=== PATIENT | female | born 1945 | race Caucasian/White ===

== ENCOUNTER → 2017-09-23 | Day surgery (SDC) | payer MEDICARE, OTHER ==
[~2017-09-23] MED LIST: CO Q10200 MG PO; COQ-10100 MG PO; DAILY VITAMIN1 EAC3 PO; FENTANYL CITRATE/PF 100MCG/2 ML INJ ONE; FISH OIL 1,0001 EAC2 PO; GARLIC100 MG PEG; GARLIC1500 MG PO; IRON PO; LAMISIL250 MG PO; LEVOTHYROXINE50 MCG PO; MELOXICAM7.5 MG PO; MIDAZOLAM HCL 2 MG/2 ML VIAL ONE; NIACIN500 M2 PO; OR PHACO EYE KIT ONE; PANTOPRAZOLE SO40 MG PO; PREOP PHACO EYE KIT ONE; PROPRANOLOL HCL10 MG PO; VENLAFAXINE HCL50 MG PO; VITAMIN B-12 PO; VITAMIN D3 PO; VITAMIN E PO
== END | disposition home or self-care (01) ==
LOC: OR 11:56
PROVIDERS: ATTEND Ophthalmology
DX: H25.12 Age-related nuclear cataract, left eye (principal); K58.9 Irritable bowel syndrome, unspecified; K21.9 Gastro-esophageal reflux disease without esophagitis
CPT/HCPCS: 66984; J2250

== ENCOUNTER → 2017-10-21 | Day surgery (SDC) | payer MEDICARE, OTHER | END | disposition home or self-care (01) | LOC: OR 10:06 | PROVIDERS: ATTEND Ophthalmology | DX: H25.11 Age-related nuclear cataract, right eye (principal); I10 Essential (primary) hypertension; R53.1 Weakness; E03.9 Hypothyroidism, unspecified; N20.0 Calculus of kidney; F41.9 Anxiety disorder, unspecified | CPT/HCPCS: 66984; J2250; V2632 ==

== ENCOUNTER → 2018-06-03 | Outpatient (CLI) | payer MEDICARE ==
[~2018-06-03] MED LIST changes: -FENTANYL CITRATE/PF 100MCG/2 ML INJ ONE; -MIDAZOLAM HCL 2 MG/2 ML VIAL ONE; -OR PHACO EYE KIT ONE; -PREOP PHACO EYE KIT ONE
--- NOTE | 2018-06-03 10:56 | Diagnostic Imaging Report ---
EXAM: Right upper quadrant abdominal ultrasound INDICATION: Abdominal pain. COMPARISON: [facility] 02/02/2016 TECHNIQUE: Transverse and longitudinal images of the right upper quadrant abdomen were obtained FINDINGS: Liver: Size: 10.6 cm in the right midclavicular line, normal Appearance: Increased echogenicity, smooth contour Mass: No focal masses Gallbladder: No distention, pericholecystic fluid, wall thickening, stone, or reported sonographic Olivier's sign. Gallbladder wall measures 0.1 cm. Bile Ducts: Intrahepatic Ducts: No dilatation Extrahepatic Ducts: Common bile duct measures 0.2 cm, no dilatation Pancreas: Visualized portions of the pancreatic head, neck and proximal body are normal. Kidney: The right kidney measures 10.1 cm without evidence of hydronephrosis or stone. Vessels: Aorta: Visualized portions are normal Inferior Vena Cava: Visualized portions are normal Main Portal Vein: 0.5 cm, normal size with hepatopetal flow. Free Fluid: No evidence of ascites. IMPRESSION: Hepatic steatosis. No sonographic evidence of cholecystitis. Signed by: Dr. Nelson Phipps MD on 06/03/2018 10:53 AM
== END ==
LOC: US 08:31
PROVIDERS: ATTEND Family Medicine
DX: R10.84 Generalized abdominal pain (principal)
CPT/HCPCS: 76705

== ENCOUNTER → 2019-06-09 | Outpatient (CLI) | payer MEDICARE ==
--- NOTE | 2019-06-09 13:21 | Diagnostic Imaging Report ---
MRI of the left hip without contrast. History: Hip pain. Decreased range of motion. Labral tear. Pain not responding to conservative management Technique: Multiplanar multisequence MRI of the hip without contrast. Comparison: None Findings: Marked bone marrow edema in the anterior left acetabulum with adjacent soft tissue edema best seen on series 7 image 9 coronal, series 6 image 17 axial and series 8 image 33 sagittal. This is most likely due to a minimally displaced fracture. Additionally, there is edema in the adjacent left hip adductor musculature consistent with a muscle strain/partial tear best seen on coronal series 7 image 15 through 19. Scattered degenerative changes are seen about the remaining visualized osseous structures. No osseous erosion. 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 Mild underlying bone marrow edema. Degeneration and fraying of the labrum. Physiologic amount of fluid in the left hip joint. The remainder the visualized ligaments and tendons about the left hip are intact. No evidence to suggest greater trochanteric bursitis. The visualized neurovascular bundles are intact. The remainder the visualized muscles are unremarkable. Impression: Findings consistent with a minimally displaced fracture involving the anterior left acetabulum. Additionally, there is edema in the adjacent left hip adductor musculature consistent with a muscle strain/partial tear. Mild degenerative arthrosis in the left hip joint with degeneration and fraying of the labrum. Signed by: Dr. Lee Garrido M.D. on 06/09/2019 1:18 PM
== END ==
LOC: MRI 11:47
PROVIDERS: ATTEND Family Medicine
DX: S73.192A Other sprain of left hip, initial encounter (principal)

== ENCOUNTER 2019-09-03 12:59 | Outpatient (RCR) | payer MEDICARE | END 2019-09-05 | LOC: PT 12:59 | PROVIDERS: ATTEND Specialist | DX: S32.592A Other specified fracture of left pubis, initial encounter for closed fracture (principal); S32.492A Other specified fracture of left acetabulum, initial encounter for closed fracture; Z91.81 History of falling; R29.6 Repeated falls; M62.81 Muscle weakness (generalized) | CPT/HCPCS: 97139 ==

== ENCOUNTER 2019-09-24 12:51 | Outpatient (RCR) | payer MEDICARE | END 2019-10-05 | LOC: PT 12:51 | PROVIDERS: ATTEND Specialist | DX: S32.592A Other specified fracture of left pubis, initial encounter for closed fracture (principal); M62.81 Muscle weakness (generalized); R29.6 Repeated falls; Z91.81 History of falling | CPT/HCPCS: 97139 ==

== ENCOUNTER → 2019-09-29 | Outpatient (CLI) | payer MEDICARE ==
--- NOTE | 2019-09-29 14:20 | Diagnostic Imaging Report ---
Exam: Bone mineral density study. History: Osteoporosis Comparison: None Discussion: Evaluation of the left hip and lumbar spine was performed. The study is technically adequate. The patient's fracture risk is compared to an age-matched control. The patient denies prior surgery/fracture of the spine, hips or forearm. Left hip femoral neck bone mineral density: 0.553 g/cm2, T-score is -2.7, Z-score is -0.7. Left hip total bone mineral density: 0.641 g/cm2, T-score is -2.5, Z-score is -0.8. Lumbar spine total bone mineral density: 0.885 gm/cm2, T-score is -1.5, Z-score is 0.8. Impression: 1. Bone mineralization by WHO Classification of the left hip is osteoporosis, the fracture risk is increased. 3. Bone mineralization by WHO Classification of the lumbar spine is osteopenia, the fracture risk is moderate. <T score: NL = -1 or higher Osteopenia = -1 to -2.5 Osteoporosis = -2.5 or lower Z score: < - 1.5 concerning for path> Recommendations: Medical evaluation for secondary causes of low bone mineral density may be appropriate. Correlate clinically for the necessity and timing of the next bone mineral density study. Signed by: Dr. Abdi Gibbs MD on 09/29/2019 2:17 PM
== END ==
LOC: DX 11:53
PROVIDERS: ATTEND Specialist
DX: Z12.31 Encounter for screening mammogram for malignant neoplasm of breast (principal); M81.8 Other osteoporosis without current pathological fracture
CPT/HCPCS: 77067; 77080

== ENCOUNTER → 2020-02-09 | Outpatient (CLI) | payer MEDICARE ==
--- NOTE | 2020-02-09 16:00 | Diagnostic Imaging Report ---
EXAM: US ABDOMEN COMPLETE DATE: 02/09/2020 2:51 PM INDICATION: Elevated liver enzymes COMPARISON: CT abdomen and pelvis of 09/06/2008, abdominal ultrasound 06/03/2018 TECHNIQUE: Transverse and longitudinal grider scale and color doppler sonographic images of the upper abdomen were obtained. FINDINGS: LIVER 13.1 cm in the right midclavicular line. Increased echogenicity of the liver with normal contour, no masses. SPLEEN 7.2 cm in maximum diameter. Normal echogenicity, no masses. GALLBLADDER No gallbladder wall thickening, distension, stone, or pericholecystic fluid. Negative reported sonographic Olivier's sign. The gallbladder wall measures 2mm BILE DUCTS No intra nor extra-hepatic biliary dilation. Common bile duct measures 2mm PANCREAS: Visualized portions are normal. RIGHT KIDNEY: 8.8 cm Echogenicity: Normal Collecting System: No hydronephrosis Stones: None Cyst/Mass: None LEFT KIDNEY: 8.5 cm Echogenicity: Normal Collecting System: No hydronephrosis Stones: None Cyst/Mass: None VESSELS: Aorta: Visualized portions are within normal size limits Inferior Vena Cava: Visualized portions are normal Main Portal Vein: 0.6 cm, normal size with hepatopetal flow. FREE FLUID: None IMPRESSION: Hepatic steatosis. No focal mass or biliary ductal dilation. No cholelithiasis or sonographic evidence of cholecystitis. Signed by: Mohini Clement MD on 02/09/2020 3:57 PM
== END ==
LOC: US 14:32
PROVIDERS: ATTEND Family Medicine
DX: R79.89 Other specified abnormal findings of blood chemistry (principal)
CPT/HCPCS: 76700

== ENCOUNTER → 2020-07-26 | Outpatient (CLI) | payer MEDICARE | LOC: MRI 08:53 | PROVIDERS: ATTEND Psychiatry & Neurology Clinical Neurophysiology | DX: M47.812 Spondylosis without myelopathy or radiculopathy, cervical region (principal); G30.1 Alzheimer's disease with late onset | CPT/HCPCS: 70551; 72141 ==

== ENCOUNTER 2020-08-21 12:27 | Inpatient (IN) | payer MEDICARE ==
[~2020-08-21] VITALS: Ht 152.4 cm; Wt 49.0 kg
[2020-08-21] MEDS ORDERED: ONDANSETRON HCL INJ 2MG/ML 2ML 2 MG/ML VIAL IV STA (14:04)
[2020-08-21 14:09] LABS: BASOPHILS # (AUTO) 0.1 (0.0-0.1); BASOPHILS % 0.8 % (0.0-1.0); EOSINOPHILS # (AUTO) 0.1 (0.0-0.4); EOSINOPHILS % 1.2 % (0.0-6.0); HEMATOCRIT 36.6 % (34.2-44.1); HEMOGLOBIN 12.4 g/dL (12.0-16.0); LYMPHOCYTES # (AUTO) 2.4 (1.0-3.2); LYMPHOCYTES % 39.6 % (18.0-39.1); MEAN CORPUSCULAR HEMOGLOBIN 36.5 pg (28-32); MEAN CORPUSCULAR HGB CONC 33.9 g/dL (31-35); MEAN CORPUSCULAR VOLUME 107.6 fL (81-99); MONOCYTES % 15.9 % (4.4-11.3); NEUTROPHILS # (AUTO) 2.5 (2.1-6.9); PLATELET COUNT 349 x10e3/uL (140-360); RED CELL DISTRIBUTION WIDTH 14.3 % (11.7-14.4)
[2020-08-21] MEDS ORDERED: SODIUM CHLORIDE 0.9% 1000ML 1,000 ML IV ONE ×2 (14:15→15:15)
[2020-08-21 14:23] LABS: CLARITY,URINE SL CLOUDY (CLEAR); COLOR,URINE YELLOW (YELLOW); KETONES,URINE 1+ (NEGATIVE); LEUKOCYTE ESTERASE ,URINE TRACE (NEGATIVE); NITRITE,URINE NEGATIVE (NEGATIVE); PROTEIN,URINE DIPSTICK NEGATIVE (NEGATIVE); URINE UROBILINOGEN >=8 mg/dL (0.2 - 1)
[2020-08-21] MEDS ORDERED: PIPERACILLIN/TAZOBACTAM 3.375 GM in SODIUM CHLORIDE 0.9% 50ML 50 ML IV ONE (14:30)
[2020-08-21] MEDS ORDERED: SODIUM CHLORIDE 0.9% 50ML 50 ML ONE (14:31)
[2020-08-21] MEDS ORDERED: PIPERACILLIN/TAZOBACTAM 3.375 GM VIAL ONE (14:31)
[2020-08-21 14:38] LABS: ALANINE AMINOTRANSFERASE 24 IU/L (0-55); ALBUMIN 2.5 g/dL (3.5-5.0); ALBUMIN/GLOBULIN RATIO 0.6 (0.8-2.0); ALKALINE PHOSPHATASE 134 IU/L (40-150); ANION GAP 18.1 mmol/L (8-16); BLOOD UREA NITROGEN 11 mg/dL (7-26); BUN/CREATININE RATIO 17 (6-25); CALCIUM 8.7 mg/dL (8.4-10.2); CARBON DIOXIDE 21 mmol/L (22-29); CHLORIDE 101 mmol/L (98-107); CREATINE KINASE 19 IU/L (29-168); CREATININE, SERUM 0.66 mg/dL (0.57-1.11); EST GLOMERULAR FILTRATION RATE > 60 ML/MIN (60-); GLUCOSE 100 mg/dL (74-118); POTASSIUM 4.1 mmol/L (3.5-5.1); SODIUM 136 mmol/L (136-145)
[2020-08-21 14:40] LABS: BACTERIA,URINE RARE /HPF; EPITHELIAL CELLS,URINE FEW /LPF; MUCUS,URINE FEW (RARE); RBC,URINE 0-5 /HPF (0-5); WBC,URINE (MAN) 0-5 /HPF (0-5)
[2020-08-21 15:06] LABS: MAGNESIUM 1.5 MG/DL (1.3-2.1)
[2020-08-21] MEDS ORDERED: ONDANSETRON HCL INJ 2MG/ML 2ML 2 MG/ML VIAL IV PRN (18:15)
[2020-08-21] MEDS ORDERED: MORPHINE SULFATE INJ 2 MG/ML SYR IV STA (18:24)
[2020-08-21] MEDS: SODIUM CHLORIDE 0.9% 1000ML 1,000 ML IV SCH (18:30)
[2020-08-21] MEDS: AZITHROMYCIN 500MG/NS 250 ML 250 ML IV SCH (18:39)
[2020-08-21] MEDS: PIPERACILLIN/TAZOBACTAM 3.375 GM in SODIUM CHLORIDE 0.9% 50ML 50 ML IV SCH (20:47)
[2020-08-21 22:02] VITALS: BP 128/82
[2020-08-22] VITALS (7 sets, daily range): BP systolic 89–124; BP diastolic 65–78
[2020-08-22 00:02] LABS: CREATINE KINASE MB 3.2 ng/mL (0-5.0)
[2020-08-22] MEDS: HYDROMORPHONE 1MG/1ML INJ IV PRN (00:22)
[2020-08-22] MEDS: PIPERACILLIN/TAZOBACTAM 3.375 GM in SODIUM CHLORIDE 0.9% 50ML 50 ML IV SCH ×4 (04:14→21:00)
[2020-08-22] MEDS: SODIUM CHLORIDE 0.9% 1000ML 1,000 ML IV SCH (04:17)
[2020-08-22 05:15] LABS: BASOPHILS % 0.5 % (0.0-1.0); EOSINOPHILS % 0.5 % (0.0-6.0); HEMATOCRIT 29.6 % (34.2-44.1); HEMOGLOBIN 9.8 g/dL (12.0-16.0); LYMPHOCYTES # (AUTO) 1.6 (1.0-3.2); LYMPHOCYTES % 26.1 % (18.0-39.1); MEAN CORPUSCULAR HEMOGLOBIN 35.8 pg (28-32); MEAN CORPUSCULAR HGB CONC 33.1 g/dL (31-35); MONOCYTES # (AUTO) 0.8 (0.2-0.8); NEUTROPHILS # (AUTO) 3.7 (2.1-6.9); NEUTROPHILS % 59.4 % (38.7-80.0); PLATELET COUNT 363 x10e3/uL (140-360); RED BLOOD COUNT 2.74 x10e6/uL (3.6-5.1); RED CELL DISTRIBUTION WIDTH 14.4 % (11.7-14.4)
[2020-08-22 06:13] LABS: ALANINE AMINOTRANSFERASE 19 IU/L (0-55); ALBUMIN 1.9 g/dL (3.5-5.0); ALBUMIN/GLOBULIN RATIO 0.6 (0.8-2.0); ALKALINE PHOSPHATASE 97 IU/L (40-150); ANION GAP 15.8 mmol/L (8-16); BLOOD UREA NITROGEN 11 mg/dL (7-26); BUN/CREATININE RATIO 17 (6-25); CALCIUM 7.5 mg/dL (8.4-10.2); CARBON DIOXIDE 18 mmol/L (22-29); CHLORIDE 110 mmol/L (98-107); CREATININE, SERUM 0.64 mg/dL (0.57-1.11); EST GLOMERULAR FILTRATION RATE > 60 ML/MIN (60-); GLUCOSE 79 mg/dL (74-118); POTASSIUM 3.8 mmol/L (3.5-5.1); SODIUM 140 mmol/L (136-145)
[2020-08-22 06:29] LABS: CREATINE KINASE MB 1.5 ng/mL (0-5.0)
[2020-08-22] MEDS: ACETAMINOPHEN 325 MG SUPP PR PRN ×2 (10:21→16:21)
[2020-08-22] MEDS ORDERED: LORAZEPAM INJ 2 MG/ML VIAL IV PRN (11:15)
[2020-08-22] MEDS ORDERED: ARICEPT5 MG PO (11:19)
[2020-08-22] MEDS ORDERED: CITRATE OF MAGNESIA 300ML BOTTLE PO ONE (11:45)
[2020-08-22] MEDS ORDERED: MINERAL OIL 132 ML BTL PR ONE (12:00)
[2020-08-22] MEDS: PROPRANOLOL HCL 10 MG TAB PO SCH ×3 (13:00→21:00)
[2020-08-22 15:02] LABS: CREATINE KINASE MB 1.2 ng/mL (0-5.0)
[2020-08-22] MEDS ORDERED: PANTOPRAZOLE 40 MG 10ML VIAL IV SCH (17:00)
[2020-08-22] MEDS: AZITHROMYCIN 500MG/NS 250 ML 250 ML IV SCH (17:16)
[2020-08-22] MEDS ORDERED: VENLAFAXINE HCL 50 MG PO SCH (21:00)
[2020-08-22] MEDS: DONEPEZIL HCL 5 MG TAB PO SCH (21:00)
[2020-08-23] VITALS (8 sets, daily range): BP systolic 97–118; BP diastolic 66–79
[2020-08-23] MEDS ORDERED: PANTOPRAZOLE 40 MG 10ML VIAL IV STA (02:01)
[2020-08-23] MEDS ORDERED: METOCLOPRAMIDE HCL 10 MG/2ML VIAL IV STA (02:04)
[2020-08-23] MEDS: PANTOPRAZOL 40MG/SOD CHL 0.9% 50 ML IV SCH ×5 (02:15→20:48)
[2020-08-23] MEDS ORDERED: PANTOPRAZOL 40MG/SOD CHL 0.9% 250 ML IV SCH (02:15)
[2020-08-23] MEDS ORDERED: SODIUM CHLORIDE 0.9% 250ML 250 ML ONE (02:24)
[2020-08-23] MEDS: PIPERACILLIN/TAZOBACTAM 3.375 GM in SODIUM CHLORIDE 0.9% 50ML 50 ML IV SCH ×4 (02:27→20:47)
[2020-08-23] MEDS ORDERED: BISACODYL 5 MG TAB EC PO ONE ×2 (03:00→03:30)
[2020-08-23] MEDS: METOCLOPRAMIDE HCL 10 MG/2ML VIAL IV SCH ×4 (05:56→22:55)
[2020-08-23] MEDS: LEVOTHYROXINE SODIUM 50 MCG TAB PO SCH (05:56)
[2020-08-23 06:21] LABS: IRON 69 ug/dL (50-170); TRANSFERRIN < 70 mg/dL (180-382)
[2020-08-23] MEDS ORDERED: PANTOPRAZOLE 40 MG 10ML VIAL IV SCH (09:00)
[2020-08-23] MEDS: PROPRANOLOL HCL 10 MG TAB PO SCH ×4 (11:45→20:47)
[2020-08-23] MEDS: AZITHROMYCIN 500MG/NS 250 ML 250 ML IV SCH (20:00)
[2020-08-23] MEDS: DONEPEZIL HCL 5 MG TAB PO SCH (20:47)
[2020-08-24] VITALS (8 sets, daily range): BP systolic 92–111; BP diastolic 58–76
[2020-08-24] MEDS: PIPERACILLIN/TAZOBACTAM 3.375 GM in SODIUM CHLORIDE 0.9% 50ML 50 ML IV SCH ×4 (03:00→21:55)
[2020-08-24] MEDS: PANTOPRAZOL 40MG/SOD CHL 0.9% 50 ML IV SCH ×5 (03:15→23:02)
[2020-08-24] MEDS: METOCLOPRAMIDE HCL 10 MG/2ML VIAL IV SCH ×4 (05:53→23:59)
[2020-08-24] MEDS: LEVOTHYROXINE SODIUM 50 MCG TAB PO SCH (05:53)
[2020-08-24] MEDS ORDERED: DRONABINOL 2.5MG PO SCH (07:30)
[2020-08-24] MEDS: PROPRANOLOL HCL 10 MG TAB PO SCH ×4 (09:00→21:00)
[2020-08-24] MEDS: DRONABINOL 2.5MG PO SCH (09:37)
[2020-08-24] MEDS: AZITHROMYCIN 500MG/NS 250 ML 250 ML IV SCH (20:14)
[2020-08-24] MEDS: DONEPEZIL HCL 5 MG TAB PO SCH (21:00)
[2020-08-25] VITALS (8 sets, daily range): BP systolic 90–112; BP diastolic 37–88
[2020-08-25] MEDS: PIPERACILLIN/TAZOBACTAM 3.375 GM in SODIUM CHLORIDE 0.9% 50ML 50 ML IV SCH ×4 (03:20→21:03)
[2020-08-25] MEDS: PANTOPRAZOL 40MG/SOD CHL 0.9% 50 ML IV SCH ×3 (04:12→16:30)
[2020-08-25 05:06] LABS: BASOPHILS % 0.3 % (0.0-1.0); EOSINOPHILS # (AUTO) 0.1 (0.0-0.4); EOSINOPHILS % 0.9 % (0.0-6.0); HEMATOCRIT 25.9 % (34.2-44.1); HEMOGLOBIN 8.6 g/dL (12.0-16.0); LYMPHOCYTES # (AUTO) 1.1 (1.0-3.2); MEAN CORPUSCULAR HEMOGLOBIN 36.3 pg (28-32); MEAN CORPUSCULAR HGB CONC 33.2 g/dL (31-35); MEAN CORPUSCULAR VOLUME 109.3 fL (81-99); MONOCYTES # (AUTO) 0.8 (0.2-0.8); MONOCYTES % 11.4 % (4.4-11.3); NEUTROPHILS # (AUTO) 4.8 (2.1-6.9); NEUTROPHILS % 70.8 % (38.7-80.0); PLATELET COUNT 289 x10e3/uL (140-360); RED BLOOD COUNT 2.37 x10e6/uL (3.6-5.1); RED CELL DISTRIBUTION WIDTH 14.7 % (11.7-14.4)
[2020-08-25] MEDS: METOCLOPRAMIDE HCL 10 MG/2ML VIAL IV SCH ×3 (05:27→18:17)
[2020-08-25] MEDS: LEVOTHYROXINE SODIUM 50 MCG TAB PO SCH (05:27)
[2020-08-25 05:56] LABS: ANION GAP 14.7 mmol/L (8-16); BLOOD UREA NITROGEN 13 mg/dL (7-26); BUN/CREATININE RATIO 18 (6-25); CALCIUM 7.9 mg/dL (8.4-10.2); CARBON DIOXIDE 15 mmol/L (22-29); CHLORIDE 114 mmol/L (98-107); CREATININE, SERUM 0.72 mg/dL (0.57-1.11); EST GLOMERULAR FILTRATION RATE > 60 ML/MIN (60-); GLUCOSE 102 mg/dL (74-118); SODIUM 141 mmol/L (136-145)
[2020-08-25 06:00] LABS: POTASSIUM 2.7 mmol/L (3.5-5.1)
[2020-08-25 06:26] LABS: PLATELET ESTIMATE ADEQUATE; PLATELET MORPHOLOGY COMMENT NORMAL; RBC MORPHOLOGY COMMENT ABNORMAL
[2020-08-25] MEDS ORDERED: POTASSIUM CHLORIDE 20 MEQ TAB CR PO ONE (06:35)
[2020-08-25] MEDS: POTASSIUM CHLORIDE 20 MEQ TAB CR PO SCH ×4 (08:10→14:15)
[2020-08-25] MEDS: DRONABINOL 2.5MG PO SCH (08:30)
[2020-08-25] MEDS: PROPRANOLOL HCL 10 MG TAB PO SCH ×4 (09:00→21:00)
[2020-08-25] MEDS: HYDROMORPHONE 1MG/1ML INJ IV PRN (09:20)
[2020-08-25] MEDS: AZITHROMYCIN 500MG/NS 250 ML 250 ML IV SCH (21:02)
[2020-08-25] MEDS: DONEPEZIL HCL 5 MG TAB PO SCH (21:03)
[2020-08-26] VITALS (7 sets, daily range): BP systolic 106–167; BP diastolic 58–95
[2020-08-26] MEDS: METOCLOPRAMIDE HCL 10 MG/2ML VIAL IV SCH ×3 (02:10→18:00)
[2020-08-26] MEDS: PIPERACILLIN/TAZOBACTAM 3.375 GM in SODIUM CHLORIDE 0.9% 50ML 50 ML IV SCH ×4 (03:00→21:00)
[2020-08-26 03:40] LABS: ABG HCO3 20 mmol/L (22-26); ABG PCO2 31 mmHg (35-45); ABG PO2 121 mmHg (80-105); ABG TCO2 21
[2020-08-26] MEDS: DRONABINOL 2.5MG PO SCH ×2 (10:04→17:04)
[2020-08-26] MEDS: PANTOPRAZOLE 40 MG 10ML VIAL IV SCH ×2 (10:04→17:04)
[2020-08-26] MEDS: PROPRANOLOL HCL 10 MG TAB PO SCH ×4 (10:05→21:00)
[2020-08-26] MEDS ORDERED: SODIUM CHLORIDE 0.9% 50ML 50 ML ONE (12:01)
[2020-08-26] MEDS ORDERED: POTASSIUM CHLORIDE 20 MEQ TAB CR PO STA (14:40)
[2020-08-26] MEDS: DONEPEZIL HCL 5 MG TAB PO SCH (21:00)
[2020-08-26] MEDS: AZITHROMYCIN 500MG/NS 250 ML 250 ML IV SCH (21:04)
[2020-08-27] VITALS (9 sets, daily range): BP systolic 103–126; BP diastolic 55–89
[2020-08-27] MEDS: PIPERACILLIN/TAZOBACTAM 3.375 GM in SODIUM CHLORIDE 0.9% 50ML 50 ML IV SCH ×4 (03:00→21:00)
[2020-08-27] MEDS: LEVOTHYROXINE SODIUM 50 MCG TAB PO SCH (05:37)
[2020-08-27] MEDS: METOCLOPRAMIDE HCL 10 MG/2ML VIAL IV SCH ×4 (05:37→19:37)
[2020-08-27] MEDS: PROPRANOLOL HCL 10 MG TAB PO SCH ×4 (08:45→21:00)
[2020-08-27] MEDS: PANTOPRAZOLE 40 MG 10ML VIAL IV SCH ×2 (08:45→17:00)
[2020-08-27] MEDS: DRONABINOL 2.5MG PO SCH ×2 (08:45→16:30)
[2020-08-27] MEDS: ACETAMINOPHEN 325 MG SUPP PR PRN (08:46)
[2020-08-27] MEDS ORDERED: SODIUM CHLORIDE 0.9% 50ML 50 ML ONE (11:26)
[2020-08-27 18:15] LABS: ANION GAP 12.2 mmol/L (8-16); BLOOD UREA NITROGEN 16 mg/dL (7-26); BUN/CREATININE RATIO 23 (6-25); CALCIUM 8.5 mg/dL (8.4-10.2); CARBON DIOXIDE 19 mmol/L (22-29); CHLORIDE 116 mmol/L (98-107); CREATININE, SERUM 0.69 mg/dL (0.57-1.11); EST GLOMERULAR FILTRATION RATE > 60 ML/MIN (60-); GLUCOSE 136 mg/dL (74-118); POTASSIUM 3.2 mmol/L (3.5-5.1); SODIUM 144 mmol/L (136-145)
[2020-08-27] MEDS: AZITHROMYCIN 500MG/NS 250 ML 250 ML IV SCH (20:00)
[2020-08-27] MEDS: DONEPEZIL HCL 5 MG TAB PO SCH (21:00)
[2020-08-27] MEDS: VENLAFAXINE HCL 75 MG TAB PO SCH (21:00)
[2020-08-28] VITALS (7 sets, daily range): BP systolic 109–135; BP diastolic 74–88
[2020-08-28] MEDS: PIPERACILLIN/TAZOBACTAM 3.375 GM in SODIUM CHLORIDE 0.9% 50ML 50 ML IV SCH ×4 (03:00→22:36)
[2020-08-28] MEDS: METOCLOPRAMIDE HCL 10 MG/2ML VIAL IV SCH ×4 (06:00→19:03)
[2020-08-28] MEDS: LEVOTHYROXINE SODIUM 50 MCG TAB PO SCH (06:00)
[2020-08-28] MEDS: PANTOPRAZOLE 40 MG 10ML VIAL IV SCH ×2 (09:37→19:03)
[2020-08-28] MEDS: DRONABINOL 2.5MG PO SCH ×2 (09:37→19:03)
[2020-08-28] MEDS: PROPRANOLOL HCL 10 MG TAB PO SCH ×4 (09:38→21:50)
[2020-08-28] MEDS ORDERED: SODIUM CHLORIDE 0.9% 250ML 250 ML ONE (20:35)
[2020-08-28] MEDS: DONEPEZIL HCL 5 MG TAB PO SCH (21:50)
[2020-08-28] MEDS: VENLAFAXINE HCL 75 MG TAB PO SCH (21:50)
[2020-08-28] MEDS: AZITHROMYCIN 500MG/NS 250 ML 250 ML IV SCH (23:10)
[2020-08-29] VITALS: BP 120/74
[2020-08-29] MEDS: METOCLOPRAMIDE HCL 10 MG/2ML VIAL IV SCH ×3 (01:23→13:01)
[2020-08-29] MEDS: PIPERACILLIN/TAZOBACTAM 3.375 GM in SODIUM CHLORIDE 0.9% 50ML 50 ML IV SCH ×3 (03:54→15:37)
[2020-08-29 04:00] VITALS: BP 126/73
[2020-08-29] MEDS: LEVOTHYROXINE SODIUM 50 MCG TAB PO SCH (06:46)
[2020-08-29 07:37] VITALS: BP 128/88
[2020-08-29] MEDS: PANTOPRAZOLE 40 MG 10ML VIAL IV SCH (08:25)
[2020-08-29] MEDS: DRONABINOL 2.5MG PO SCH ×2 (08:25→16:15)
[2020-08-29] MEDS: PROPRANOLOL HCL 10 MG TAB PO SCH ×2 (08:26→13:42)
[2020-08-29 10:17] VITALS: BP 128/88
[2020-08-29 11:37] VITALS: BP 124/79
[2020-08-29 16:11] VITALS: BP 132/77
== END 2020-08-29 17:46 | DRG 871 ==
LOC: ER 13:28 → ERHOLD 18:08 → MED/SURG3 20:06
DX: A41.9 Sepsis, unspecified organism (principal); J69.0 Pneumonitis due to inhalation of food and vomit; K55.9 Vascular disorder of intestine, unspecified; N39.0 Urinary tract infection, site not specified; E44.0 Moderate protein-calorie malnutrition; Z20.822 Contact with and (suspected) exposure to COVID-19; E03.9 Hypothyroidism, unspecified; F32.9 Major depressive disorder, single episode, unspecified; F03.90 Unspecified dementia, unspecified severity, without behavioral disturbance, psychotic disturbance, mood disturbance, and anxiety; R13.10 Dysphagia, unspecified; Z68.20 Body mass index [BMI] 20.0-20.9, adult; K59.00 Constipation, unspecified
CPT/HCPCS: 36415; 36600; 71045; 71046; 74176; 74230; 80048; 80053; 81001; 82150; 82550; 82553; 82607; 82746; 82805; 83540; 83605; 83690; 83735; 84466; 84484; 85025; 85045; 87040; 87086; 93005; 96367; 96376; 97139; 99251; 99284; J0456; J1170; J2270; J2405; J2543; J2765; J7030; J7050; U0002

== ENCOUNTER 2020-10-04 15:57 | Inpatient (IN) | payer MEDICARE ==
[~2020-10-04] VITALS: Ht 152.4 cm; Wt 49.0 kg
[~2020-10-04 15:57] MED LIST changes: +ARICEPT5 MG PO
[2020-10-04 19:15] VITALS: BP 151/73
[2020-10-04] MEDS ORDERED: ACETAMINOPHEN 325 MG TAB PO PRN ×2 (20:00)
[2020-10-04] MEDS ORDERED: ONDANSETRON HCL INJ 2MG/ML 2ML 2 MG/ML VIAL IV PRN (20:00)
[2020-10-04] MEDS ORDERED: ZINC OXIDE 30 GM TUBE TOP PRN (20:00)
[2020-10-04] MEDS ORDERED: ACETAMINOPHEN 325 MG SUPP PR PRN (20:00)
[2020-10-04] MEDS ORDERED: HYDROCORTISONE 2.5% CREAM 30GM TUBE TOP PRN (20:00)
[2020-10-04] MEDS ORDERED: VITAMIN A & D OINT 2 OZ TUBE TOP PRN (20:00)
[2020-10-04 20:38] VITALS: BP 151/73
[2020-10-04] MEDS: DOCUSATE SODIUM LIQD 100 MG/10 ML UDC NG SCH (21:00)
[2020-10-04] MEDS: PROPRANOLOL HCL 10 MG TAB PO SCH (21:00)
[2020-10-04] MEDS: LIDOCAINE HCL 5% OINMENT 35.44 GM TUBE TP SCH (21:00)
[2020-10-04] MEDS: ZINC OXIDE 30 GM TUBE TOP SCH (21:00)
[2020-10-04] MEDS: NYSTATIN 15 GM POWDER UD BTL TOP SCH (21:00)
[2020-10-04] MEDS: PANTOPRAZOLE SODIUM 40 MG SUSPDR.PKT PO SCH (21:00)
[2020-10-04] MEDS: VENLAFAXINE 50 MG PO SCH (21:00)
[2020-10-04] MEDS: DONEPEZIL HCL 5 MG TAB PO SCH (21:00)
[2020-10-04 21:53] VITALS: BP 151/73
[2020-10-05] VITALS (7 sets, daily range): BP systolic 119–146; BP diastolic 58–88
[2020-10-05] MEDS: LEVOTHYROXINE SODIUM 50 MCG TAB PO SCH (05:31)
[2020-10-05] MEDS: METOCLOPRAMIDE HCL 10 MG/2ML VIAL IV SCH ×5 (05:31→23:13)
[2020-10-05] MEDS: ZINC OXIDE 30 GM TUBE TOP SCH ×3 (09:00→21:00)
[2020-10-05] MEDS: LIDOCAINE HCL 5% OINMENT 35.44 GM TUBE TP SCH ×3 (09:00→21:00)
[2020-10-05] MEDS: NYSTATIN 15 GM POWDER UD BTL TOP SCH ×3 (09:00→21:00)
[2020-10-05] MEDS: COLLAGENASE 5 GM TUBE TOP SCH (09:00)
[2020-10-05] MEDS: PANTOPRAZOLE SODIUM 40 MG SUSPDR.PKT PO SCH ×2 (09:33→17:00)
[2020-10-05] MEDS: POLYETHYLENE GLYCOL 3350 17 GM PACK PO SCH (09:34)
[2020-10-05] MEDS: LISINOPRIL 10 MG TAB PO SCH (09:34)
[2020-10-05] MEDS: PROPRANOLOL HCL 10 MG TAB PO SCH ×4 (09:35→21:00)
[2020-10-05] MEDS: DOCUSATE SODIUM LIQD 100 MG/10 ML UDC NG SCH ×2 (09:35→17:00)
[2020-10-05] MEDS: DONEPEZIL HCL 5 MG TAB PO SCH (20:40)
[2020-10-05] MEDS: VENLAFAXINE 50 MG PO SCH (20:41)
[2020-10-06] VITALS (9 sets, daily range): BP systolic 131–153; BP diastolic 73–88
[2020-10-06 05:21] LABS: BASOPHILS % 0.5 % (0.0-1.0); EOSINOPHILS # (AUTO) 0.2 (0.0-0.4); EOSINOPHILS % 2.6 % (0.0-6.0); HEMATOCRIT 28.9 % (34.2-44.1); HEMOGLOBIN 9.3 g/dL (12.0-16.0); LYMPHOCYTES # (AUTO) 2.1 (1.0-3.2); LYMPHOCYTES % 33.8 % (18.0-39.1); MEAN CORPUSCULAR HGB CONC 32.2 g/dL (31-35); MEAN CORPUSCULAR VOLUME 102.5 fL (81-99); MONOCYTES # (AUTO) 0.9 (0.2-0.8); MONOCYTES % 14.1 % (4.4-11.3); NEUTROPHILS % 47.9 % (38.7-80.0); PLATELET COUNT 336 x10e3/uL (140-360); RED BLOOD COUNT 2.82 x10e6/uL (3.6-5.1); RED CELL DISTRIBUTION WIDTH 15.2 % (11.7-14.4)
[2020-10-06] MEDS: METOCLOPRAMIDE HCL 10 MG/2ML VIAL IV SCH ×3 (05:21→16:39)
[2020-10-06] MEDS: LEVOTHYROXINE SODIUM 50 MCG TAB PO SCH (05:21)
[2020-10-06 05:38] LABS: CALCIUM 8.7 mg/dL (8.4-10.2); CREATININE, SERUM 0.48 mg/dL (0.57-1.11)
[2020-10-06] MEDS: DOCUSATE SODIUM LIQD 100 MG/10 ML UDC NG SCH ×2 (09:00→16:39)
[2020-10-06] MEDS: PROPRANOLOL HCL 10 MG TAB PO SCH ×4 (09:00→21:30)
[2020-10-06] MEDS: PANTOPRAZOLE SODIUM 40 MG SUSPDR.PKT PO SCH ×2 (09:00→16:39)
[2020-10-06] MEDS: POLYETHYLENE GLYCOL 3350 17 GM PACK PO SCH (09:00)
[2020-10-06] MEDS: ZINC OXIDE 30 GM TUBE TOP SCH ×3 (10:05→21:31)
[2020-10-06] MEDS: COLLAGENASE 5 GM TUBE TOP SCH (10:05)
[2020-10-06] MEDS: NYSTATIN 15 GM POWDER UD BTL TOP SCH ×3 (10:05→21:00)
[2020-10-06] MEDS: LIDOCAINE HCL 5% OINMENT 35.44 GM TUBE TP SCH ×3 (10:06→21:31)
[2020-10-06] MEDS: BALSAM PERU/CASTOR OIL 60 GM OINT...G. TP SCH (10:06)
[2020-10-06] MEDS ORDERED: LIDOCAINE 1% W/EPINEPHRINE 20 ML VIAL ONE (11:47)
[2020-10-06] MEDS ORDERED: LIDOCAINE HCL 2% 30 ML TUBE ONE (11:48)
[2020-10-06] MEDS ORDERED: BUPIVACAINE HCL 0.5% INJ 30 ML VIAL INJ ONE (11:48)
[2020-10-06] MEDS: LISINOPRIL 10 MG TAB PO SCH (16:40)
[2020-10-06] MEDS: TRAMADOL HCL 50 MG TAB PO PRN (16:58)
[2020-10-06] MEDS: VENLAFAXINE 50 MG PO SCH (21:00)
[2020-10-06] MEDS: DONEPEZIL HCL 5 MG TAB PO SCH (21:30)
[2020-10-07] VITALS (8 sets, daily range): BP systolic 124–156; BP diastolic 63–89
[2020-10-07] MEDS: METOCLOPRAMIDE HCL 10 MG/2ML VIAL IV SCH ×4 (00:23→17:03)
[2020-10-07] MEDS: LEVOTHYROXINE SODIUM 50 MCG TAB PO SCH (05:21)
[2020-10-07] MEDS: PROPRANOLOL HCL 10 MG TAB PO SCH ×4 (09:10→21:00)
[2020-10-07] MEDS: DOCUSATE SODIUM LIQD 100 MG/10 ML UDC NG SCH ×2 (09:10→16:56)
[2020-10-07] MEDS: NYSTATIN 15 GM POWDER UD BTL TOP SCH ×3 (09:10→20:00)
[2020-10-07] MEDS: PANTOPRAZOLE SODIUM 40 MG SUSPDR.PKT PO SCH ×2 (09:10→16:56)
[2020-10-07] MEDS: COLLAGENASE 5 GM TUBE TOP SCH (09:10)
[2020-10-07] MEDS: POLYETHYLENE GLYCOL 3350 17 GM PACK PO SCH (09:10)
[2020-10-07] MEDS: LISINOPRIL 10 MG TAB PO SCH (09:10)
[2020-10-07] MEDS: ZINC OXIDE 30 GM TUBE TOP SCH ×3 (09:11→20:00)
[2020-10-07] MEDS: BALSAM PERU/CASTOR OIL 60 GM OINT...G. TP SCH (09:11)
[2020-10-07] MEDS: LIDOCAINE HCL 5% OINMENT 35.44 GM TUBE TP SCH ×3 (09:11→20:00)
[2020-10-07] MEDS: TRAMADOL HCL 50 MG TAB PO PRN (12:44)
[2020-10-07] MEDS ORDERED: FENTANYL CITRATE/PF 100MCG/2 ML INJ ONE (15:31)
[2020-10-07] MEDS: DONEPEZIL HCL 5 MG TAB PO SCH (19:59)
[2020-10-07] MEDS: VENLAFAXINE 50 MG PO SCH (20:00)
[2020-10-08] VITALS (8 sets, daily range): BP systolic 132–154; BP diastolic 68–88
[2020-10-08] MEDS: LEVOTHYROXINE SODIUM 50 MCG TAB PO SCH (05:40)
[2020-10-08] MEDS: METOCLOPRAMIDE HCL 10 MG/2ML VIAL IV SCH ×2 (05:40)
[2020-10-08 06:21] LABS: BASOPHILS % 0.5 % (0.0-1.0); EOSINOPHILS # (AUTO) 0.1 (0.0-0.4); EOSINOPHILS % 1.9 % (0.0-6.0); HEMATOCRIT 27.6 % (34.2-44.1); HEMOGLOBIN 8.9 g/dL (12.0-16.0); LYMPHOCYTES # (AUTO) 2.6 (1.0-3.2); LYMPHOCYTES % 34.2 % (18.0-39.1); MEAN CORPUSCULAR HEMOGLOBIN 33.1 pg (28-32); MEAN CORPUSCULAR HGB CONC 32.2 g/dL (31-35); MEAN CORPUSCULAR VOLUME 102.6 fL (81-99); MONOCYTES % 12.7 % (4.4-11.3); NEUTROPHILS # (AUTO) 3.8 (2.1-6.9); NEUTROPHILS % 50.2 % (38.7-80.0); PLATELET COUNT 321 x10e3/uL (140-360); RED BLOOD COUNT 2.69 x10e6/uL (3.6-5.1); RED CELL DISTRIBUTION WIDTH 15.3 % (11.7-14.4)
[2020-10-08 06:45] LABS: ALBUMIN 2.1 g/dL (3.5-5.0); ALBUMIN/GLOBULIN RATIO 0.7 (0.8-2.0); ANION GAP 11.1 mmol/L (8-16); CALCIUM 8.3 mg/dL (8.4-10.2); CREATININE, SERUM 0.49 mg/dL (0.57-1.11); POTASSIUM 4.1 mmol/L (3.5-5.1)
[2020-10-08] MEDS: POLYETHYLENE GLYCOL 3350 17 GM PACK PO SCH (09:03)
[2020-10-08] MEDS: PANTOPRAZOLE SODIUM 40 MG SUSPDR.PKT PO SCH ×2 (09:03→17:20)
[2020-10-08] MEDS: PROPRANOLOL HCL 10 MG TAB PO SCH ×4 (09:03→19:55)
[2020-10-08] MEDS: ZINC OXIDE 30 GM TUBE TOP SCH ×3 (09:03→19:55)
[2020-10-08] MEDS: DOCUSATE SODIUM LIQD 100 MG/10 ML UDC NG SCH ×2 (09:03→17:20)
[2020-10-08] MEDS: COLLAGENASE 5 GM TUBE TOP SCH (09:03)
[2020-10-08] MEDS: LISINOPRIL 10 MG TAB PO SCH (09:03)
[2020-10-08] MEDS: LIDOCAINE HCL 5% OINMENT 35.44 GM TUBE TP SCH ×3 (09:03→19:55)
[2020-10-08] MEDS: NYSTATIN 15 GM POWDER UD BTL TOP SCH ×3 (09:03→19:55)
[2020-10-08] MEDS: BALSAM PERU/CASTOR OIL 60 GM OINT...G. TP SCH (09:04)
[2020-10-08] MEDS: METOPROLOL SUCCINATE 25 MG TAB XL PO SCH (11:19)
[2020-10-08] MEDS: DONEPEZIL HCL 5 MG TAB PO SCH (19:54)
[2020-10-08] MEDS: VENLAFAXINE 50 MG PO SCH (19:54)
[2020-10-09] VITALS: BP 142/92
[2020-10-09 04:00] VITALS: BP 147/91
[2020-10-09 05:24] LABS: BASOPHILS % 0.5 % (0.0-1.0); EOSINOPHILS # (AUTO) 0.2 (0.0-0.4); EOSINOPHILS % 2.4 % (0.0-6.0); HEMATOCRIT 29.5 % (34.2-44.1); HEMOGLOBIN 9.6 g/dL (12.0-16.0); LYMPHOCYTES # (AUTO) 2.7 (1.0-3.2); LYMPHOCYTES % 31.6 % (18.0-39.1); MEAN CORPUSCULAR HEMOGLOBIN 33.2 pg (28-32); MEAN CORPUSCULAR HGB CONC 32.5 g/dL (31-35); MEAN CORPUSCULAR VOLUME 102.1 fL (81-99); MONOCYTES # (AUTO) 1.1 (0.2-0.8); MONOCYTES % 12.8 % (4.4-11.3); NEUTROPHILS # (AUTO) 4.5 (2.1-6.9); NEUTROPHILS % 51.8 % (38.7-80.0); PLATELET COUNT 312 x10e3/uL (140-360); RED BLOOD COUNT 2.89 x10e6/uL (3.6-5.1); RED CELL DISTRIBUTION WIDTH 14.8 % (11.7-14.4)
[2020-10-09] MEDS: LEVOTHYROXINE SODIUM 50 MCG TAB PO SCH (05:30)
[2020-10-09 05:50] LABS: ANION GAP 11.2 mmol/L (8-16); CALCIUM 8.7 mg/dL (8.4-10.2); CREATININE, SERUM 0.46 mg/dL (0.57-1.11); POTASSIUM 4.2 mmol/L (3.5-5.1)
[2020-10-09 07:48] VITALS: BP 147/91
[2020-10-09] MEDS: POLYETHYLENE GLYCOL 3350 17 GM PACK PO SCH (09:00)
[2020-10-09] MEDS: DOCUSATE SODIUM LIQD 100 MG/10 ML UDC NG SCH (09:00)
[2020-10-09] MEDS: PROPRANOLOL HCL 10 MG TAB PO SCH (11:00)
[2020-10-09] MEDS: PANTOPRAZOLE SODIUM 40 MG SUSPDR.PKT PO SCH (11:00)
[2020-10-09] MEDS: ZINC OXIDE 30 GM TUBE TOP SCH (11:00)
[2020-10-09] MEDS: LIDOCAINE HCL 5% OINMENT 35.44 GM TUBE TP SCH (11:00)
[2020-10-09] MEDS: METOPROLOL SUCCINATE 25 MG TAB XL PO SCH (11:00)
[2020-10-09] MEDS: NYSTATIN 15 GM POWDER UD BTL TOP SCH (11:00)
[2020-10-09] MEDS: LISINOPRIL 10 MG TAB PO SCH (11:00)
[2020-10-09 12:15] VITALS: BP 168/88
[2020-10-09] MEDS: COLLAGENASE 5 GM TUBE TOP SCH (12:35)
[2020-10-09] MEDS: BALSAM PERU/CASTOR OIL 60 GM OINT...G. TP SCH (12:36)
[2020-10-09 16:19] VITALS: BP 143/89
== END 2020-10-09 16:20 | DRG 348 ==
LOC: MED/SURG2 17:38
PROC: 0DBP7ZZ Excision of Rectum, Via Natural or Artificial Opening (ICD-10-PCS; principal; 2020-10-06 12:00)
DX: K60.3 Anal fistula (principal); K61.1 Rectal abscess; I50.32 Chronic diastolic (congestive) heart failure; Z20.822 Contact with and (suspected) exposure to COVID-19; D64.9 Anemia, unspecified; F03.90 Unspecified dementia, unspecified severity, without behavioral disturbance, psychotic disturbance, mood disturbance, and anxiety; L89.152 Pressure ulcer of sacral region, stage 2; Z86.718 Personal history of other venous thrombosis and embolism; D63.8 Anemia in other chronic diseases classified elsewhere; I11.0 Hypertensive heart disease with heart failure
CPT/HCPCS: 36415; 71045; 80048; 80053; 82948; 85025; 88304; 99251; J2765; J3010; U0002

== ENCOUNTER → 2021-01-15 | Day surgery (SDC) | payer MEDICARE ==
[~2021-01-15] MED LIST changes: +LISINOPRIL5 MG PO
[2021-01-15 13:45] LABS: BASOPHILS % 0.7 % (0.0-1.0); EOSINOPHILS # (AUTO) 0.2 (0.0-0.4); EOSINOPHILS % 3.4 % (0.0-6.0); HEMATOCRIT 34.5 % (34.2-44.1); HEMOGLOBIN 10.9 g/dL (12.0-16.0); LYMPHOCYTES % 34.4 % (18.0-39.1); MEAN CORPUSCULAR HGB CONC 31.6 g/dL (31-35); MONOCYTES # (AUTO) 0.6 (0.2-0.8); MONOCYTES % 9.8 % (4.4-11.3); NEUTROPHILS % 51.4 % (38.7-80.0); PLATELET COUNT 255 x10e3/uL (140-360); RED BLOOD COUNT 3.52 x10e6/uL (3.6-5.1); RED CELL DISTRIBUTION WIDTH 13.5 % (11.7-14.4)
[2021-01-15 15:49] VITALS: BP 134/75
== END | disposition home or self-care (01) ==
LOC: OR 12:19
PROVIDERS: ATTEND Internal Medicine Gastroenterology
DX: Z43.1 Encounter for attention to gastrostomy (principal); K29.70 Gastritis, unspecified, without bleeding; K20.90 Esophagitis, unspecified without bleeding; N20.0 Calculus of kidney; I10 Essential (primary) hypertension; E03.9 Hypothyroidism, unspecified; F03.90 Unspecified dementia, unspecified severity, without behavioral disturbance, psychotic disturbance, mood disturbance, and anxiety; Z20.822 Contact with and (suspected) exposure to COVID-19
CPT/HCPCS: 36415; 43247; 85025; 93005; U0002; 43235